=== PATIENT | female | born 1985 | race Caucasian/White ===

== ENCOUNTER 2017-11-20 08:29 | Emergency (ER) | payer MEDICAID ==
[~2017-11-20] VITALS: Ht 170.2 cm; Wt 97.5 kg
[2017-11-20 08:34] VITALS: BP 141/83
[2017-11-20] MEDS ORDERED: NACL 0.9% 1,000 ML IV SCH (09:26)
[2017-11-20] MEDS ORDERED: KETOROLAC 30 MG/ML VIAL IVP ONE (09:30)
[2017-11-20] MEDS ORDERED: ONDANSETRON 4 MG/2 ML VIAL IVP ONE (09:30)
[2017-11-20] MEDS ORDERED: cefTRIAXone 1,000 MG VIAL ONE (09:40)
[2017-11-20 09:53] LABS: BILIRUBIN,URINE NEGATIVE (NEGATIVE); BLOOD, URINE NEGATIVE (NEGATIVE); COLOR,URINE YELLOW (YELLOW); LEUKOCYTE ESTERASE ,URINE NEGATIVE (NEGATIVE); NITRITE, URINE POSITIVE (NEGATIVE); UGLUCOSE 3+ (NEGATIVE)
[2017-11-20 09:59] LABS: BASOPHILS % (AUTO) 0.4 % (0.0-2.0); EOSINOPHILS # (AUTO) 0.1 K/uL (0-0.4); EOSINOPHILS % (AUTO) 1.1 % (0.0-4.0); HEMATOCRIT 36.4 % (36-48); HEMOGLOBIN 12.3 g/dL (12.0-16.0); LYMPHOCYTES # (AUTO) 1.6 K/uL (2.5-16.5); LYMPHOCYTES % (AUTO) 16.2 % (20.5-51.1); MEAN CORPUSCULAR HEMOGLOBIN 27 pg (27-31); MEAN CORPUSCULAR HGB CONC 34 g/dL (33-37); MEAN CORPUSCULAR VOLUME 80.5 fL (80-94); MONOCYTES # (AUTO) 0.5 K/uL (0.8-1.0); MONOCYTES % (AUTO) 5.4 % (1.7-9.3); NEUTROPHILS # (AUTO) 7.9 K/uL (1.8-7.7); NEUTROPHILS % (AUTO) 76.9 % (42.2-75.2); PLATELET COUNT (AUTO) 255 K/uL (140-450); RED BLOOD CELL COUNT(AUTO) 4.52 MIL/uL (4.20-5.40); RED CELL DISTRIBUTION WIDTH 12.8 % (11.6-13.7); WHITE BLOOD COUNT (AUTO) 10.2 K/uL (4.8-10.8)
[2017-11-20] MEDS ORDERED: MORPHINE SULFATE 4 MG/ML SYR IVP ONE (10:20)
[2017-11-20 10:25] LABS: ALBUMIN 3.1 g/dL (3.4-5.0); ANION GAP 9.5 (8-16); CARBON DIOXIDE 27.4 mmol/L (21-32); CREATININE 0.7 mg/dL (0.6-1.3); POTASSIUM 3.9 mmol/L (3.5-5.1); TOTAL BILIRUBIN 0.3 mg/dL (0.0-1.0)
[2017-11-20 10:29] LABS: APPEARANCE,URINE HAZY (CLEAR)
[2017-11-20 10:32] LABS: RBC,URINE NONE SEEN /HPF (0-5); WBC,URINE 20-60 /HPF (0-5)
[2017-11-20] MEDS ORDERED: NACL 0.9% 500 ML IV ONE (11:40)
[2017-11-20] MEDS ORDERED: INSULIN REGULAR, HUMAN 100 UNIT/ML VIAL SUBQ ONE (11:40)
[2017-11-20 13:24] VITALS: BP 120/76
== END 2017-11-20 13:24 | disposition home or self-care (01) ==
LOC: MED 08:29
DX: N12 Tubulo-interstitial nephritis, not specified as acute or chronic (principal); E11.65 Type 2 diabetes mellitus with hyperglycemia; Z90.89 Acquired absence of other organs
CPT/HCPCS: 36415; 76705; 80053; 81001; 82948; 83605; 83690; 85025; 87040; 87086; 96361; 96365; 96375; 99285; J0696; J1815; J1885; J2270; J2405; J7030; J7060; Q0092; 81025; 87186

== ENCOUNTER 2018-01-29 21:03 | Emergency (ER) | payer MEDICAID ==
[~2018-01-29] VITALS: Ht 170.2 cm; Wt 100.8 kg
[2018-01-29 21:10] VITALS: BP 148/81
[2018-01-29] MEDS ORDERED: NACL 0.9% 2,000 ML IV ONE (21:40)
[2018-01-29] MEDS ORDERED: KETOROLAC 30 MG/ML VIAL IVP ONE (21:40)
[2018-01-29 21:50] LABS: BASOPHILS # (AUTO) 0.1 K/uL (0.00-0.22); BASOPHILS % (AUTO) 0.5 % (0.0-2.0); EOSINOPHILS # (AUTO) 0.2 K/uL (0-0.4); EOSINOPHILS % (AUTO) 1.8 % (0.0-4.0); HEMATOCRIT 37.8 % (36-48); HEMOGLOBIN 12.5 g/dL (12.0-16.0); LYMPHOCYTES # (AUTO) 2.7 K/uL (2.5-16.5); LYMPHOCYTES % (AUTO) 26.9 % (20.5-51.1); MEAN CORPUSCULAR HEMOGLOBIN 27 pg (27-31); MEAN CORPUSCULAR HGB CONC 33 g/dL (33-37); MONOCYTES # (AUTO) 0.6 K/uL (0.8-1.0); MONOCYTES % (AUTO) 5.6 % (1.7-9.3); NEUTROPHILS # (AUTO) 6.4 K/uL (1.8-7.7); NEUTROPHILS % (AUTO) 65.2 % (42.2-75.2); PLATELET COUNT (AUTO) 248 K/uL (140-450); RED BLOOD CELL COUNT(AUTO) 4.67 MIL/uL (4.20-5.40); RED CELL DISTRIBUTION WIDTH 13.1 % (11.6-13.7); WHITE BLOOD COUNT (AUTO) 9.9 K/uL (4.8-10.8)
[2018-01-29 22:07] LABS: ALBUMIN 3.2 g/dL (3.4-5.0); ANION GAP 9.6 (8-16); CARBON DIOXIDE 28.5 mmol/L (21-32); CREATININE 1.1 mg/dL (0.6-1.3); POTASSIUM 4.1 mmol/L (3.5-5.1); TOTAL BILIRUBIN 0.1 mg/dL (0.0-1.0)
[2018-01-29] MEDS ORDERED: INSULIN REGULAR, HUMAN 100 UNIT/ML VIAL IVP ONE (22:30)
[2018-01-29] MEDS ORDERED: NACL 0.9% 1,000 ML IV ONE (22:30)
[2018-01-30 00:51] VITALS: BP 143/87
== END 2018-01-30 00:51 | disposition home or self-care (01) ==
LOC: MED 21:03
DX: E11.65 Type 2 diabetes mellitus with hyperglycemia (principal); R10.84 Generalized abdominal pain
CPT/HCPCS: 36415; 80053; 81002; 81025; 85025; 96361; 96374; 99284; J1815; J1885; J7030

== ENCOUNTER 2018-03-14 12:55 | Emergency (ER) | payer MEDICAID ==
[~2018-03-14] VITALS: Ht 172.7 cm; Wt 97.5 kg
[2018-03-14 13:06] VITALS: BP 111/63
--- NOTE | 2018-03-14 13:06 | NUR ---
PT BEDSIDE TRIAGED IN BED 3. URINE OBTAINED.
--- NOTE | 2018-03-14 13:06 | NUR ---
PT AMBULATES TO BED 3
--- NOTE | 2018-03-14 13:07 | NUR ---
PT C/O BREAST PAIN, AND TENDERNESS WITH BURNING SENSATION X 1 MO 04/29. NO WARMTH OR REDNESS TO SITE. PT DENIES N/V/D; SKIN IS INTACT, PINK/WARM/DRY; AAOX4, PERRL, WITH EVEN AND STEADY GAIT; LUNGS CLEAR BL, BREATHING UNLABORED; HR EVEN AND REGULAR, BL PERIPHERAL PULSES PRESENT; BS ACTIVE X4, NO TENDERNESS TO PALPATION, NO HEPATOSPLENOMEGALLY PALPATED, RESONANT TO PERCUSSION; PT DENIES ANY FEVER, CP, SOB, OR COUGH AT THIS TIME; ; VSS; PATIENT POSITIONED FOR COMFORT; HOB ELEVATED; BEDRAILS UP X2; BED DOWN.
[2018-03-14] MEDS ORDERED: KETOROLAC 60 MG/2 ML VIAL IM ONE (13:30)
[2018-03-14 13:48] VITALS: BP 120/82
--- NOTE | 2018-03-14 13:48 | NUR ---
REPORT RECEIVED AT THIS TIME FROM JULIANNA STOCKTON.
== END 2018-03-14 13:48 | disposition home or self-care (01) ==
LOC: MED 12:55
DX: N64.4 Mastodynia (principal); G89.29 Other chronic pain; E11.9 Type 2 diabetes mellitus without complications
CPT/HCPCS: 71045; 96372; 99283; J1885; Q0092

== ENCOUNTER 2018-04-01 16:43 | Emergency (ER) | payer MEDICAID ==
[~2018-04-01] VITALS: Ht 170.2 cm; Wt 100.7 kg
[2018-04-01 16:50] VITALS: BP 113/75
--- NOTE | 2018-04-01 16:53 | NUR ---
PT AMBULATED TO ED BED 8, REPORT TO ANITA LEVINE
--- NOTE | 2018-04-01 17:48 | NUR ---
PT. CAME INTO THE ED DUE TO WOUNDS TO BILAT. TOES. PT. STATES " ABOUT 9 DAYS AGO I WENT TO A [employer] I WORE [place]OW[employer] BOOTS AND I DIDNT FEEL ANY PAIN, BUT WHEN I TOOK MY BOOTS OFF I HAD THESE OPEN BLISTERS ON MY TOES AND MY CLEANED THEMAND THEY WERE LOOKING BETTER THEN ON SUNDAY I WORE SOME OTHER SHOES THAT I WASNT SUPPOSE TO AND IT GOT WORSE". 03/29 PAIN IN BILAT. TOES THAT IS ACHING AND NON RADIATING. L AND R ON TOP OF TOE OPEN WOUND THAT IS NON DRAINING AND NO PURULENT DISCHARGE NOTED. DENIES N/V/D. DENIES FEVERS OR CHILLS. ER MD NOTIFIED. WILL CONTINUE TO MONITOR. AT BEDSIDE WILL CONTINUE TO MONITOR.
[2018-04-01] MEDS ORDERED: CLINDAMYCIN 900 MG in DEXTROSE 5% 100 ML IV ONE (18:30)
[2018-04-01] MEDS ORDERED: NACL 0.9% 1,000 ML IV ONE (18:30)
[2018-04-01] MEDS ORDERED: CLINDAMYCIN 900 MG/6 ML VIAL IV ONE (18:43)
--- NOTE | 2018-04-01 19:15 | NUR ---
Pt report given to JULIANNA JOHNSON . Transfer of care at this time.
[2018-04-01 19:26] LABS: BASOPHILS # (AUTO) 0.1 K/uL (0.00-0.22); BASOPHILS % (AUTO) 0.9 % (0.0-2.0); EOSINOPHILS # (AUTO) 0.2 K/uL (0-0.4); EOSINOPHILS % (AUTO) 1.6 % (0.0-4.0); HEMATOCRIT 36.3 % (36-48); LYMPHOCYTES # (AUTO) 2.8 K/uL (2.5-16.5); LYMPHOCYTES % (AUTO) 26.4 % (20.5-51.1); MEAN CORPUSCULAR HEMOGLOBIN 27 pg (27-31); MEAN CORPUSCULAR HGB CONC 33 g/dL (33-37); MONOCYTES # (AUTO) 0.5 K/uL (0.8-1.0); MONOCYTES % (AUTO) 4.8 % (1.7-9.3); NEUTROPHILS % (AUTO) 66.3 % (42.2-75.2); PLATELET COUNT (AUTO) 273 K/uL (140-450); RED BLOOD CELL COUNT(AUTO) 4.54 MIL/uL (4.20-5.40); RED CELL DISTRIBUTION WIDTH 13.8 % (11.6-13.7); WHITE BLOOD COUNT (AUTO) 10.5 K/uL (4.8-10.8)
[2018-04-01 19:45] LABS: ANION GAP 12.5 (8-16); CARBON DIOXIDE 27.8 mmol/L (21-32); CREATININE 0.8 mg/dL (0.6-1.3); POTASSIUM 3.3 mmol/L (3.5-5.1)
[2018-04-01 19:50] LABS: ALBUMIN 3.4 g/dL (3.4-5.0); TOTAL BILIRUBIN 0.2 mg/dL (0.0-1.0)
[2018-04-01] MEDS ORDERED: BACITRACIN OINT 500 UNITS/GM PKT TP ONE (20:00)
[2018-04-01 20:02] LABS: APPEARANCE,URINE SL CLOUDY (CLEAR); BLOOD, URINE NEGATIVE (NEGATIVE); COLOR,URINE YELLOW (YELLOW); LEUKOCYTE ESTERASE ,URINE TRACE (NEGATIVE); NITRITE, URINE POSITIVE (NEGATIVE); PH,URINE 5.5 (5.0-9.0); UGLUCOSE 2+ (NEGATIVE)
[2018-04-01 20:05] LABS: BILIRUBIN,URINE NEGATIVE (NEGATIVE)
[2018-04-01 20:19] VITALS: BP 115/75
--- NOTE | 2018-04-01 20:19 | NUR ---
Patient discharged with v/s stable. Written and verbal after care instructions given and explained. Patient alert, oriented and verbalized understanding of instructions. Ambulatory with steady gait. All questions addressed prior to discharge. ID band removed. Patient advised to follow up with PMD. Rx of ACETAMINOPHEN, BACITRACIN, BACTRIM given. Patient educated on indication of medication including possible reaction and side effects. Opportunity to ask questions provided and answered.
[2018-04-01 20:23] LABS: RBC,URINE 3-10 (FEW) /HPF (0-5); WBC,URINE 60-80 /HPF (0-5)
[2018-04-01 20:51] LABS: PROTHROMBIN TIME 9.2 secs (10.8-13.4)
== END 2018-04-01 20:19 | disposition home or self-care (01) ==
LOC: MED 16:43
DX: L97.528 Non-pressure chronic ulcer of other part of left foot with other specified severity (principal); L97.518 Non-pressure chronic ulcer of other part of right foot with other specified severity; E11.9 Type 2 diabetes mellitus without complications
CPT/HCPCS: 36415; 71045; 73630; 80053; 81001; 81025; 82948; 83605; 85025; 85610; 85730; 87040; 87086; 87186; 96365; 99285; J3490; Q0092; 96361

== ENCOUNTER 2018-04-23 20:43 | Emergency (ER) | payer MEDICAID ==
[~2018-04-23] VITALS: Ht 170.2 cm; Wt 99.8 kg
[2018-04-23 20:51] VITALS: BP 156/86
[2018-04-23 23:53] LABS: APPEARANCE,URINE CLOUDY (CLEAR); BILIRUBIN,URINE NEGATIVE (NEGATIVE); BLOOD, URINE TRACE-L (NEGATIVE); COLOR,URINE YELLOW (YELLOW); LEUKOCYTE ESTERASE ,URINE NEGATIVE (NEGATIVE); NITRITE, URINE NEGATIVE (NEGATIVE); PH,URINE 6.5 (5.0-9.0); UGLUCOSE 3+ (NEGATIVE)
[2018-04-24 00:06] LABS: RBC,URINE 0-5 (RARE) /HPF (0-5); WBC,URINE TOO MANY TO COUNT /HPF (0-5)
[2018-04-24 01:00] LABS: BASOPHILS # (AUTO) 0.1 K/uL (0.00-0.22); BASOPHILS % (AUTO) 0.6 % (0.0-2.0); EOSINOPHILS # (AUTO) 0.1 K/uL (0-0.4); EOSINOPHILS % (AUTO) 1.3 % (0.0-4.0); HEMATOCRIT 35.6 % (36-48); HEMOGLOBIN 11.9 g/dL (12.0-16.0); LYMPHOCYTES # (AUTO) 2.8 K/uL (2.5-16.5); LYMPHOCYTES % (AUTO) 29.2 % (20.5-51.1); MEAN CORPUSCULAR HEMOGLOBIN 27 pg (27-31); MEAN CORPUSCULAR HGB CONC 33 g/dL (33-37); MEAN CORPUSCULAR VOLUME 80.8 fL (80-94); MONOCYTES # (AUTO) 0.6 K/uL (0.8-1.0); MONOCYTES % (AUTO) 6.7 % (1.7-9.3); NEUTROPHILS # (AUTO) 5.8 K/uL (1.8-7.7); NEUTROPHILS % (AUTO) 62.2 % (42.2-75.2); PLATELET COUNT (AUTO) 259 K/uL (140-450); RED CELL DISTRIBUTION WIDTH 14.4 % (11.6-13.7); WHITE BLOOD COUNT (AUTO) 9.4 K/uL (4.8-10.8)
[2018-04-24] MEDS ORDERED: cefTRIAXone 1,000 MG in DEXT 5% MINI-BAG PLUS 50 ML IV ONE (01:05)
[2018-04-24 01:18] LABS: ALBUMIN 3.4 g/dL (3.4-5.0); ANION GAP 4.8 (8-16); CARBON DIOXIDE 30.1 mmol/L (21-32); CREATININE 0.9 mg/dL (0.6-1.3); POTASSIUM 3.9 mmol/L (3.5-5.1); TOTAL BILIRUBIN 0.2 mg/dL (0.0-1.0)
[2018-04-24] MEDS ORDERED: cefTRIAXone 1,000 MG VIAL ONE (01:24)
[2018-04-24] MEDS ORDERED: NACL 0.9% 1,000 ML IV ONE ×2 (01:25→01:45)
[2018-04-24] MEDS ORDERED: NACL 0.9% 2,000 ML IV SCH (01:32)
[2018-04-24] MEDS ORDERED: INSULIN REGULAR, HUMAN 100 UNIT/ML VIAL SUBQ ONE (01:35)
[2018-04-24 02:45] VITALS: BP 144/89
== END 2018-04-24 02:45 | disposition home or self-care (01) ==
LOC: MED 20:43
DX: N39.0 Urinary tract infection, site not specified (principal); E11.65 Type 2 diabetes mellitus with hyperglycemia
CPT/HCPCS: 36415; 80053; 81001; 81025; 82948; 84702; 85025; 87086; 87186; 96365; 96372; 99284; J0696; J1815; J7030

== ENCOUNTER 2018-12-15 15:02 | Emergency (ER) | payer MEDICAID ==
[~2018-12-15] VITALS: Ht 170.2 cm; Wt 94.8 kg
[2018-12-15 15:05] VITALS: BP 135/71
--- NOTE | 2018-12-15 15:15 | NUR ---
BIB . AAO X4 C/O TANISHA FEET NON-PITTING EDEMA X 4 DAYS. PT IS 7 WEEKS . PT STATES MILD SWELLING TO TANISHA HANDS. +MOVEMENT, +CIRCULATION, CAP REFILL < 3 SECS. STEADY GAIT. DENIES SOB. HOB UP. BEDSIDE RAILS UP X1. ON LOW BED POSITION, LOCKED. ER MADE AWARE OF PT STATUS.
--- NOTE | 2018-12-15 15:40 | NUR ---
PT TAKEN FOR ULTRASOUND VIA WHEEL CHAIR BY TECH.
[2018-12-15 16:05] LABS: APPEARANCE,URINE CLEAR (CLEAR); BILIRUBIN,URINE NEGATIVE (NEGATIVE); BLOOD, URINE NEGATIVE (NEGATIVE); COLOR,URINE YELLOW (YELLOW); LEUKOCYTE ESTERASE ,URINE NEGATIVE (NEGATIVE); NITRITE, URINE NEGATIVE (NEGATIVE); PH,URINE 5.5 (5.0-9.0); UGLUCOSE 3+ (NEGATIVE)
--- NOTE | 2018-12-15 16:20 | NUR ---
PT BROUGHT BACK BY PASHA FROM ULTRASOUND VIA WHEEL CHAIR.
--- NOTE | 2018-12-15 16:25 | NUR ---
TAX COMPLIANCE REPRESENTATIVE AT BEDSIDE
[2018-12-15 16:45] LABS: BASOPHILS % (AUTO) 0.5 % (0.0-2.0); EOSINOPHILS # (AUTO) 0.1 K/uL (0-0.4); HEMATOCRIT 34.9 % (36-48); HEMOGLOBIN 11.7 g/dL (12.0-16.0); LYMPHOCYTES # (AUTO) 2.4 K/uL (2.5-16.5); MEAN CORPUSCULAR HEMOGLOBIN 27 pg (27-31); MEAN CORPUSCULAR HGB CONC 33 g/dL (33-37); MEAN CORPUSCULAR VOLUME 80.9 fL (80-94); MONOCYTES # (AUTO) 0.5 K/uL (0.8-1.0); MONOCYTES % (AUTO) 5.8 % (1.7-9.3); NEUTROPHILS # (AUTO) 6.2 K/uL (1.8-7.7); NEUTROPHILS % (AUTO) 66.7 % (42.2-75.2); PLATELET COUNT (AUTO) 291 K/uL (140-450); RED BLOOD CELL COUNT(AUTO) 4.31 MIL/uL (4.20-5.40); RED CELL DISTRIBUTION WIDTH 13.4 % (11.6-13.7); WHITE BLOOD COUNT (AUTO) 9.3 K/uL (4.8-10.8)
[2018-12-15 17:53] VITALS: BP 132/70
--- NOTE | 2018-12-15 17:53 | NUR ---
Patient discharged with v/s stable. Written and verbal after care instructions given and explained. Patient alert, oriented and verbalized understanding of instructions. Ambulatory with steady gait. All questions addressed prior to discharge. ID band removed. Patient advised to follow up with PMD. Rx of [facility] DHA given. Patient educated on indication of medication including possible reaction and side effects. Opportunity to ask questions provided and answered.
== END 2018-12-15 17:53 | disposition home or self-care (01) ==
LOC: MED 15:02
DX: O9A.211 Injury, poisoning and certain other consequences of external causes complicating pregnancy, first trimester (principal); S90.512A Abrasion, left ankle, initial encounter; M25.471 Effusion, right ankle; E11.9 Type 2 diabetes mellitus without complications; Z3A.01 Less than 8 weeks gestation of pregnancy; W22.8XXA Striking against or struck by other objects, initial encounter; Y93.89 Activity, other specified; Y92.89 Other specified places as the place of occurrence of the external cause; Y99.8 Other external cause status
CPT/HCPCS: 36415; 76817; 81003; 81025; 82948; 84702; 85025; 86900; 86901; 93971; 99284; Q0092; 96372; 99285; C1758

== ENCOUNTER 2018-12-26 05:55 | Emergency (ER) | payer MEDICAID ==
[~2018-12-26] VITALS: Ht 172.7 cm; Wt 101.6 kg
[2018-12-26 06:00] VITALS: BP 126/73
--- NOTE | 2018-12-26 06:10 | NUR ---
PT PRESNTS TO ED WITH EPIGASTRIC ABD PAIN, NAUSEA WITHOUT VOMITING X6 HRS. 7 WKS . NO VAGINAL BLEEDING. 6/10 PAIN. VSS. POSITIONED IN BED FOR COMFORT. ER MD AWARE. CONTINUE TO MONITOR.
--- NOTE | 2018-12-26 06:10 | NUR ---
PT TAKEN TO BED 9
--- NOTE | 2018-12-26 07:20 | NUR ---
GOT REPORT FROM DAVID KENNEDY. PT AAO X4, GCS 15, ABLE TO SPEAK WITH FULL COMPLETE SENTNECES. RESPIATIONS EVEN AND UNLABORED, BL LUNG CLEAR. SKIN WAMR/PINK/DRY, +PMSC. BLE +2 EDEMA NOTED. ABDOMEN SOFT, NON DISTENDED, ACTIVE BOWEL SOUND X4. VSS, NO ACUTE DISTRESS NOTED. WILL CONTINUE TO MONITOR
--- NOTE | 2018-12-26 07:20 | NUR ---
US AT BEDSIDE
[2018-12-26 07:33] LABS: BASOPHILS % (AUTO) 0.5 % (0.0-2.0); EOSINOPHILS # (AUTO) 0.1 K/uL (0-0.4); EOSINOPHILS % (AUTO) 1.2 % (0.0-4.0); HEMATOCRIT 31.8 % (36-48); HEMOGLOBIN 10.7 g/dL (12.0-16.0); LYMPHOCYTES # (AUTO) 1.7 K/uL (2.5-16.5); LYMPHOCYTES % (AUTO) 19.1 % (20.5-51.1); MEAN CORPUSCULAR HEMOGLOBIN 27 pg (27-31); MEAN CORPUSCULAR HGB CONC 34 g/dL (33-37); MEAN CORPUSCULAR VOLUME 81.5 fL (80-94); MONOCYTES # (AUTO) 0.5 K/uL (0.8-1.0); MONOCYTES % (AUTO) 6.1 % (1.7-9.3); NEUTROPHILS # (AUTO) 6.6 K/uL (1.8-7.7); NEUTROPHILS % (AUTO) 73.1 % (42.2-75.2); PLATELET COUNT (AUTO) 264 K/uL (140-450); RED CELL DISTRIBUTION WIDTH 13.3 % (11.6-13.7)
[2018-12-26 07:35] LABS: POTASSIUM 3.8 mmol/L (3.5-5.1)
[2018-12-26 07:36] LABS: ANION GAP 12.2 (8-16); CARBON DIOXIDE 24.6 mmol/L (21-32); CREATININE 0.7 mg/dL (0.6-1.3)
[2018-12-26 07:42] LABS: TOTAL BILIRUBIN 0.3 mg/dL (0.0-1.0)
[2018-12-26 07:43] LABS: ALBUMIN 2.5 g/dL (3.4-5.0)
[2018-12-26 08:56] LABS: APPEARANCE,URINE CLEAR (CLEAR); BILIRUBIN,URINE NEGATIVE (NEGATIVE); BLOOD, URINE NEGATIVE (NEGATIVE); COLOR,URINE YELLOW (YELLOW); LEUKOCYTE ESTERASE ,URINE NEGATIVE (NEGATIVE); NITRITE, URINE NEGATIVE (NEGATIVE); UGLUCOSE TRACE (NEGATIVE)
[2018-12-26 10:10] VITALS: BP 138/82
== END 2018-12-26 10:11 | disposition home or self-care (01) ==
LOC: MED 05:55
DX: O26.891 Other specified pregnancy related conditions, first trimester (principal); R60.9 Edema, unspecified; E11.9 Type 2 diabetes mellitus without complications; Z3A.01 Less than 8 weeks gestation of pregnancy
CPT/HCPCS: 36415; 76817; 80053; 81003; 83880; 84702; 85025; 86900; 86901; 99284; Q0092

== ENCOUNTER 2019-01-12 12:34 | Emergency (ER) | payer MEDICAID ==
[~2019-01-12] VITALS: Ht 172.7 cm; Wt 111.1 kg
[2019-01-12 13:29] VITALS: BP 135/78
--- NOTE | 2019-01-12 13:31 | NUR ---
PT SENT TO LOBBY TO WAIT FOR AVAILABLE BED.
--- NOTE | 2019-01-12 13:42 | NUR ---
PT TAKEN TO US.
[2019-01-12 14:36] LABS: BASOPHILS % (AUTO) 0.3 % (0.0-2.0); EOSINOPHILS # (AUTO) 0.1 K/uL (0-0.4); EOSINOPHILS % (AUTO) 0.8 % (0.0-4.0); HEMATOCRIT 33.1 % (36-48); LYMPHOCYTES # (AUTO) 1.5 K/uL (2.5-16.5); LYMPHOCYTES % (AUTO) 14.7 % (20.5-51.1); MEAN CORPUSCULAR HEMOGLOBIN 27 pg (27-31); MEAN CORPUSCULAR HGB CONC 33 g/dL (33-37); MEAN CORPUSCULAR VOLUME 82.4 fL (80-94); MONOCYTES # (AUTO) 0.5 K/uL (0.8-1.0); MONOCYTES % (AUTO) 4.5 % (1.7-9.3); NEUTROPHILS # (AUTO) 8.3 K/uL (1.8-7.7); NEUTROPHILS % (AUTO) 79.7 % (42.2-75.2); PLATELET COUNT (AUTO) 297 K/uL (140-450); RED BLOOD CELL COUNT(AUTO) 4.01 MIL/uL (4.20-5.40); RED CELL DISTRIBUTION WIDTH 13.6 % (11.6-13.7); WHITE BLOOD COUNT (AUTO) 10.4 K/uL (4.8-10.8)
[2019-01-12 14:40] LABS: APPEARANCE,URINE CLEAR (CLEAR); BILIRUBIN,URINE NEGATIVE (NEGATIVE); BLOOD, URINE NEGATIVE (NEGATIVE); COLOR,URINE YELLOW (YELLOW); LEUKOCYTE ESTERASE ,URINE NEGATIVE (NEGATIVE); NITRITE, URINE NEGATIVE (NEGATIVE); PH,URINE 6.5 (5.0-9.0); UGLUCOSE NEGATIVE (NEGATIVE)
[2019-01-12 14:43] LABS: RBC,URINE 0-5 /HPF (0-5); WBC,URINE 0-5 /HPF (0-5)
[2019-01-12 14:46] LABS: ANION GAP 11.7 (8-16); CARBON DIOXIDE 23.8 mmol/L (21-32); CREATININE 0.6 mg/dL (0.6-1.3); POTASSIUM 3.5 mmol/L (3.5-5.1)
[2019-01-12 14:52] LABS: ALBUMIN 2.8 g/dL (3.4-5.0); TOTAL BILIRUBIN 0.3 mg/dL (0.0-1.0)
--- NOTE | 2019-01-12 15:34 | NUR ---
PT AMBULATED TO BED 09.
--- NOTE | 2019-01-12 15:40 | NUR ---
LLQ PAIN X1 DAY WITH N/V; PT REPORTS BEING 11 WEEKS , DENIES VAGINAL BLEEDING. ALSO C/O HEADACHE. DENIES D; SKIN IS PINK/WARM/DRY; AAOX4 WITH EVEN AND STEADY GAIT; LUNGS CLEAR BL; HR EVEN AND REGULAR; PT DENIES ANY FEVER, CP, SOB, OR COUGH AT THIS TIME; PATIENT STATES LLQ ABDOMINAL PAIN OF 6/10, HEADACHE 8/10 AT THIS TIME; VSS; PATIENT POSITIONED FOR COMFORT; HOB ELEVATED; BEDRAILS UP X2; BED DOWN. ER MD MADE AWARE OF PT STATUS. IS AT BEDSIDE.
[2019-01-12 17:15] VITALS: BP 162/77
--- NOTE | 2019-01-12 17:15 | NUR ---
Patient discharged with v/s stable. Written and verbal after care instructions given and explained. Patient alert, oriented and verbalized understanding of instructions. Ambulatory with steady gait. All questions addressed prior to discharge. ID band removed. Copy of lab results and US report given to patient for OBGYN follow up. Patient advised to follow up with PMD. Rx of Plus and Ocea 0.65% nasal solution given. Patient educated on indication of medication including possible reaction and side effects. Opportunity to ask questions provided and answered.
== END 2019-01-12 17:15 | disposition home or self-care (01) ==
LOC: MED 12:34
DX: O26.891 Other specified pregnancy related conditions, first trimester (principal); R10.32 Left lower quadrant pain; O21.9 Vomiting of pregnancy, unspecified; E11.9 Type 2 diabetes mellitus without complications; Z3A.09 9 weeks gestation of pregnancy
CPT/HCPCS: 36415; 76801; 80053; 81001; 81025; 83690; 84702; 85025; 99284; Q0092

== ENCOUNTER 2019-02-01 06:47 | Emergency (ER) | payer MEDICAID ==
[~2019-02-01] VITALS: Ht 172.7 cm; Wt 111.1 kg
[2019-02-01 07:05] VITALS: BP 150/77
--- NOTE | 2019-02-01 07:05 | NUR ---
PT COMPLAING OF SORE THROAT , COUGH, RUNNYNOSE, NASAL CONGESTION, BODYACHES, FOR 3 DAYS. STATES TO HAVE GREEN SPUTUM, FEELS LIKE CHOKING WHILE SWALLOWING. DENIES LOWER ABD PAIN, CRAMPING NOR VAG BLEEDING, 14 WEEKS, LMP NOVEMBER 03. LUNGS SOUNDS CLEAR. PT HAS BLE 1+ PITTING EDEMA. WILL CONTINUE TO MONITOR PT.
--- NOTE | 2019-02-01 07:05 | NUR ---
TO BED # 11 AMBULATORY
--- NOTE | 2019-02-01 07:05 | NUR ---
Note malenaone in EDM - 02/01/19 at 0734 by More [employer] PT COMPLAING OF SORE THROAT , COUGH, RUNNYNOSE, NASAL CONGESTION, BODYACHES, FOR 3 DAYS. STATES TO HAVE GREEN SPUTUM, FEELS LIKE CHOKING WHILE SWALLOWING. DENIES LOWER ABD PAIN, CRAMPING NOR VAG BLEEDING, 13 WEEKS, LMP NOVEMBER 03. LUNGS SOUNDS CLEAR. WILL CONTINUE TO MONITOR PT.
[2019-02-01 07:59] VITALS: BP 150/77
--- NOTE | 2019-02-01 07:59 | NUR ---
Patient discharged with v/s stable. Written and verbal after care instructions given and explained. Patient alert, oriented and verbalized understanding of instructions. Ambulatory with steady gait. All questions addressed prior to discharge. ID band removed. Patient advised to follow up with PMD. Rx of CLARITINJ given. Patient educated on indication of medication including possible reaction and side effects. Opportunity to ask questions provided and answered.
== END 2019-02-01 07:59 | disposition home or self-care (01) ==
LOC: MED 06:47
DX: J30.2 Other seasonal allergic rhinitis (principal); R03.0 Elevated blood-pressure reading, without diagnosis of hypertension; E11.9 Type 2 diabetes mellitus without complications
CPT/HCPCS: 99283

== ENCOUNTER 2019-03-07 13:56 | Emergency (ER) | payer MEDICAID ==
[~2019-03-07] VITALS: Ht 172.7 cm; Wt 109.8 kg
[2019-03-07 14:06] VITALS: BP 94/57
[2019-03-07 14:26] VITALS: BP 119/71
--- NOTE | 2019-03-07 14:46 | NUR ---
PT AMBULATED TO ER BED 07
--- NOTE | 2019-03-07 14:58 | NUR ---
PT PRESENTS TO ED WITH C/O CHEST PAIN X 2 DAYS. PT 19 WEEKS , A1 C/O STERNAL CHEST PAIN & HEADACHE X2 DAYS 04/29. PT STATES SHE FEELS SOB AND HER ARMS FEEL NUMB/TINGLING. PT REPORTS N/V, DENIES DIARRHEA/FEVER. ALSO STATED PREECLAMSIA PREVIOUS . PT AAO X4, GCS 15, ABLE TO SPEAK WITH FULL COMPLETE SENETENCES. RESPIRATIONS EVEN AND UNLABORED, BL LUNG CLEAR. SKIN WARM/PINK/DRY, +PMSC. ABDOMJEN ROUND, SOFT, NON DISTENDED, ACTIVE BOWEL SOUND X4. VSS, STATED CP 5/10. 12 LEADS EKG PERFORMED. ED PROVIDER MADE AWARE OF PT STATUS. WILL CONTINUE TO MONITOR
[2019-03-07 15:49] LABS: BASOPHILS % (AUTO) 0.2 % (0.0-2.0); EOSINOPHILS # (AUTO) 0.1 K/uL (0-0.4); HEMATOCRIT 30.6 % (36-48); HEMOGLOBIN 10.2 g/dL (12.0-16.0); LYMPHOCYTES # (AUTO) 1.8 K/uL (2.5-16.5); LYMPHOCYTES % (AUTO) 15.5 % (20.5-51.1); MEAN CORPUSCULAR HEMOGLOBIN 27 pg (27-31); MEAN CORPUSCULAR HGB CONC 33 g/dL (33-37); MEAN CORPUSCULAR VOLUME 80.2 fL (80-94); MONOCYTES # (AUTO) 0.5 K/uL (0.8-1.0); MONOCYTES % (AUTO) 4.7 % (1.7-9.3); NEUTROPHILS % (AUTO) 78.6 % (42.2-75.2); PLATELET COUNT (AUTO) 281 K/uL (140-450); RED BLOOD CELL COUNT(AUTO) 3.81 MIL/uL (4.20-5.40); RED CELL DISTRIBUTION WIDTH 13.3 % (11.6-13.7); WHITE BLOOD COUNT (AUTO) 11.5 K/uL (4.8-10.8)
[2019-03-07 16:09] LABS: ALBUMIN 2.4 g/dL (3.4-5.0); ANION GAP 9.3 (8-16); CARBON DIOXIDE 27.6 mmol/L (21-32); CREATININE 0.8 mg/dL (0.6-1.3); POTASSIUM 3.9 mmol/L (3.5-5.1); TOTAL BILIRUBIN 0.2 mg/dL (0.0-1.0)
--- NOTE | 2019-03-07 16:55 | NUR ---
Dr. Martinez evaluating patient at bedside.
--- NOTE | 2019-03-07 18:00 | NUR ---
PT REMAINS GCS 15, RESPIATIONS EVEN AND UNLABORED. AMBULATORY WITH STEADY GAIT. VSS, STATED RT ARM NUMNESS AND TINGLING. CP 01/27. MADE AWARE. WILL CONTINUE TO MONITOR
--- NOTE | 2019-03-07 19:21 | NUR ---
US AT BEDSIDE.
[2019-03-07] MEDS ORDERED: INSU100S10 SC ×2 (19:38)
[2019-03-07] MEDS ORDERED: INSU100S5 IJ (19:38)
--- NOTE | 2019-03-07 20:59 | NUR ---
PT WATED TO LEAVE AMA. INFORMED PT OF RISK OF LEAVING AMA. PT VERBALIZED UNDERSTANDING. GLENNA DUBON SIGNED
[2019-03-07 21:00] VITALS: BP 140/83
--- NOTE | 2019-03-07 21:00 | NUR ---
Patient does not wish to proceed with medical care recommended by . Patient given information related to possible complications, up to and including , which could occur as a result of leaving hospital at this time. Patient verbalizes understanding of risks involved leaving against medical advice. Patient has signed AMA form.
== END 2019-03-07 21:00 | disposition left against medical advice (07) ==
LOC: MED 13:56
DX: O26.892 Other specified pregnancy related conditions, second trimester (principal); R07.89 Other chest pain; M79.601 Pain in right arm; E11.9 Type 2 diabetes mellitus without complications; F17.200 Nicotine dependence, unspecified, uncomplicated; Z79.4 Long term (current) use of insulin; Z3A.17 17 weeks gestation of pregnancy
CPT/HCPCS: 36415; 76805; 80053; 81002; 81025; 82948; 83690; 85025; 85379; 93005; 93970; 99284; Q0092

== ENCOUNTER 2020-03-09 10:51 | Emergency (ER) | payer MEDICAID, SELFPAY ==
[~2020-03-09 10:51] MED LIST: INSU100S10 SC; INSU100S5 IJ
--- NOTE | 2020-03-09 11:14 | NUR ---
PATIENT LEFT WITHOUT BEING TRIAGED. NO FURTHER CARE PROVIDED FOR PATIENT.
== END 2020-03-09 11:14 | disposition left against medical advice (07) ==
LOC: MED 10:51
DX: Z53.21 Procedure and treatment not carried out due to patient leaving prior to being seen by health care provider (principal)

== ENCOUNTER 2021-03-24 12:53 | Emergency (ER) | payer MEDICAID, SELFPAY ==
[~2021-03-24] VITALS: Ht 170.2 cm; Wt 99.8 kg
[2021-03-24 13:05] VITALS: BP 98/74
--- NOTE | 2021-03-24 13:12 | NUR ---
C/O RIGHT 3RD TOE SWELLING X 1 WEEK AND WOUND TO RIGHT FOOT X 2 MONTHS. FBS 121 THIS AM. PMH: [id number]
[2021-03-24 14:50] VITALS: BP 98/74
--- NOTE | 2021-03-24 14:50 | NUR ---
Patient discharged with v/s stable. Written and verbal after care instructions given and explained. Patient verbalized understanding. Ambulatory with steady gait. All questions addressed prior to discharge. Advised to follow up with PMD.
== END 2021-03-24 14:50 | disposition home or self-care (01) ==
LOC: MED 12:53
DX: M79.674 Pain in right toe(s) (principal); X58.XXXA Exposure to other specified factors, initial encounter; Y93.89 Activity, other specified; Y92.89 Other specified places as the place of occurrence of the external cause; Y99.8 Other external cause status
CPT/HCPCS: 73660; 99283

== ENCOUNTER 2021-08-31 15:26 | Emergency (ER) | payer MEDICAID, SELFPAY ==
[~2021-08-31] VITALS: Ht 170.2 cm; Wt 99.8 kg
[2021-08-31 15:39] VITALS: BP 156/87
[2021-08-31 16:25] VITALS: BP 156/87
--- NOTE | 2021-08-31 16:26 | NUR ---
NO NURSING INTERVETIONS PROVIDED
== END 2021-08-31 16:27 | disposition home or self-care (01) ==
LOC: MED 15:26
DX: E11.9 Type 2 diabetes mellitus without complications (principal); Z45.2 Encounter for adjustment and management of vascular access device; Z79.4 Long term (current) use of insulin; Z98.890 Other specified postprocedural states
CPT/HCPCS: 99281

== ENCOUNTER 2022-09-06 22:40 | Emergency (ER) | payer MEDICAID ==
[~2022-09-06] VITALS: Ht 170.2 cm; Wt 92.1 kg
[2022-09-06 22:56] VITALS: BP 171/89
--- NOTE | 2022-09-06 23:08 | NUR ---
PT TO 10
--- NOTE | 2022-09-06 23:29 | NUR ---
36 Y/O F presents with puss like pimples through out the body with pain 04/29 since july 2022. pt stated these pimples have happened before. pt stated she took a norco for pain with minor relief. pt denies any NVD and no blood thinners. pmh- 3 diabetic amputations bilateral foot NKA
--- NOTE | 2022-09-07 00:41 | NUR ---
Dr. Rangel at bedside
[2022-09-07] MEDS ORDERED: CEPH-588 PO (00:53)
[2022-09-07] MEDS ORDERED: PRED20TA5 PO (00:53)
[2022-09-07] MEDS ORDERED: IBUP-2213 PO (00:53)
--- NOTE | 2022-09-07 01:05 | NUR ---
Patient discharged with v/s stable. Written and verbal after care instructions given and explained. Patient alert, oriented and verbalized understanding of instructions. Ambulatory with steady gait. All questions addressed prior to discharge. ID band removed. Patient advised to follow up with PMD. Rx of cephalexin, Ibuprofen, and prednisone given. Opportunity to ask questions provided and answered.
== END 2022-09-07 01:05 | disposition home or self-care (01) ==
LOC: MED 22:40
DX: L03.116 Cellulitis of left lower limb (principal); E11.9 Type 2 diabetes mellitus without complications; Z79.4 Long term (current) use of insulin; Z89.439 Acquired absence of unspecified foot
CPT/HCPCS: 99283